=== PATIENT | male | born 1960 | race Two or more races ===

== ENCOUNTER 2021-11-03 22:39 | Emergency (ER) | payer MEDICAID, OTHER ==
[~2021-11-03] VITALS: Ht 170.2 cm; Wt 73.5 kg
[2021-11-03 22:49] VITALS: BP 121/86
== END 2021-11-04 03:36 | disposition left against medical advice (07) ==
LOC: ER 22:39
DX: R09.89 Other specified symptoms and signs involving the circulatory and respiratory systems (principal); M54.2 Cervicalgia; Z53.21 Procedure and treatment not carried out due to patient leaving prior to being seen by health care provider
CPT/HCPCS: 70490; 74176